=== PATIENT | female | born 1970 | race Caucasian/White ===

== ENCOUNTER 2018-06-09 16:35 | Emergency (ER) | payer OTHER ==
[~2018-06-09] VITALS: Ht 175.3 cm; Wt 65.0 kg
[2018-06-09 18:11] VITALS: BP 111/72
[2018-06-09] MEDS ORDERED: AMOX-580 PO (19:41)
== END 2018-06-09 19:53 | disposition home or self-care (01) ==
LOC: ER 16:36
DX: J06.9 Acute upper respiratory infection, unspecified (principal); J32.9 Chronic sinusitis, unspecified; Z88.1 Allergy status to other antibiotic agents; Z88.8 Allergy status to other drugs, medicaments and biological substances
CPT/HCPCS: 99283